=== PATIENT | female | born 1995 | race Two or more races ===

== ENCOUNTER 2024-03-18 10:13 | Emergency (ER) | payer OTHER ==
[~2024-03-18] VITALS: Ht 177.8 cm; Wt 61.2 kg
[2024-03-18] MEDS ORDERED: METOCLOPRAMIDE HCL 5 MG/ML VIAL IM ONE (11:15)
[2024-03-18] MEDS ORDERED: METOCLOPRAMIDE HCL 5 MG/ML VIAL ONE (11:26)
[2024-03-18 12:13] LABS: BILIRUBIN TOTAL 0.63 mg/dL (0.3-1.2); CALCIUM 9.2 mg/dL (8.5-10.1); CREATININE SERUM 1.04 mg/dL (0.55-1.02); GFR 63.1; GLOBULINA 3.6 G/DL (2.4-3.5); POTASSIUM 3.99 mEq/L (3.5-5.1); TOTAL PROTEIN 7.6 gm/dL (6.4-8.2)
[2024-03-18 12:14] LABS: URINE APPEARANCE Clear; URINE BILIRRUBIN Negative (NEGATIVE); URINE BLOOD Negative; URINE COLOR Yellow; URINE GLUCOSE Negative (NEGATIVE); URINE KETONE Negative (NEGATIVE); URINE LEUKOCYTE Negative; URINE NITRATE Negative; URINE PROTEIN Negative (NEGATIVE); URINE UROBILINOGEN 0.2 E.U./dl
[2024-03-18 12:19] LABS: URINE BACTERIA 111.9 uL (0.0-1933); URINE EPITHELIAL CELLS 5.7 uL (0.0-38.8); URINE WBC 4.6 uL (0.0-23.2)
[2024-03-18 12:32] LABS: HEMATOCRIT 40.6 % (36.0-45.00); HEMOGLOBIN 14.1 g/dL (12.0-15.00); MEAN CELL VOLUME 89.3 fL (80.00-100.00); MEAN CORPUSCULAR HGB CONC 34.7 g/dl (32.0-36.0); PLATELET COUNT 200 K/uL (150-450); RED BLOOD COUNT 4.55 M/uL (4.00-6.00); RED CELL DISTRIBUTION WIDTH 13.4 % (11.5-14.5)
[2024-03-18 12:32] LABS: URINE RBC 0.6 uL (0.0-20.8)
[2024-03-18 12:36] LABS: INR 1.04; PARTIAL THROMBOPLASTIN TIME 31.5 SECONDS (22.0-34.0); PROTHROMBIN TIME 10.9 SECONDS (9.0-11.5)
== END 2024-03-18 14:33 | disposition home or self-care (01) ==
LOC: ER 10:14
PROVIDERS: General Practice
DX: R42 Dizziness and giddiness (principal); Z20.822 Contact with and (suspected) exposure to COVID-19